=== PATIENT | male | born 1985 | race Caucasian/White ===

== ENCOUNTER 2020-01-03 05:19 | Observation (INO) ==
[2020-01-03 05:57] LABS: Basophils # 0.1 K/mcL (0.0-0.2); Basophils % 1.1 %; Eosinophils # 0.4 K/mcL (0.0-0.6); Hematocrit 43.7 % (37.5-50.1); Immature Granulocytes % 0.3 % (0-4); Lymphocytes # 2.7 K/mcL (0.6-4.6); Lymphocytes % 37.2 %; Mean Corpuscular HGB Conc 34.3 g/dL (31.6-35.5); Mean Corpuscular Hemoglobin 30.2 pg (28.0-33.3); Mean Corpuscular Volume 87.9 fL (83.0-100.0); Mean Platelet Volume 10.6 fL (9.4-12.4); Monocytes # 0.5 K/mcL (0.0-1.3); Monocytes % 6.5 %; Neutrophils # 3.6 K/mcL (1.6-8.9); Platelet Count 247 K/mcL (140-400); Red Blood Count 4.97 M/mcL (4.19-5.50); Red Cell Distribution Width 12.5 % (11.5-14.5); Segmented Neutrophils % 49.9 %; White Blood Count 7.2 K/mcL (4.3-11.1)
[2020-01-03 06:16] LABS: BUN/Creatinine Ratio 17 (6-26); Blood Urea Nitrogen 18 mg/dL (6-20); Calcium 9.5 mg/dL (8.6-10.3); Carbon Dioxide 26 mEq/L (23-29); Chloride 102 mEq/L (98-107); Glucose 119 mg/dL (70-105); Osmolality,Calculated 287 (280-300); Potassium 3.8 mEq/L (3.5-5.1); Sodium 137 mEq/L (136-145); Troponin I < 0.03 ng/mL (< 0.04); eGFR For African Americans > 60 (> 60); eGFR For Non-African Americans > 60 (> 60)
[2020-01-03] MEDS: Nitroglycerin 0.4 MG TAB.SUBL SL PRN ×3 (06:21→19:42)
[2020-01-03] MEDS ORDERED: Naloxone 0.4 MG/ML INJ IVP PRN (07:14)
[2020-01-03] MEDS ORDERED: Ondansetron 4 MG/2 ML VIAL IVP PRN (07:14)
[2020-01-03] MEDS ORDERED: Nitroglycerin 0.4 MG TAB.SUBL SL PRN (07:20)
[2020-01-03] MEDS ORDERED: Isovue-370 500 ML BOTTLE IVP ONE (07:42)
[2020-01-03] MEDS ORDERED: VITAMIN D3 PO SCH (09:00)
[2020-01-03] MEDS: Cholecalciferol (D-3) 1,000 UNIT (25MCG) TABLET PO SCH (09:00)
[2020-01-03] MEDS: Aspirin Enteric Coated 81 MG Tablet PO SCH (09:00)
[2020-01-03] MEDS ORDERED: CALCIUM CARB PO SCH (09:00)
[2020-01-03] MEDS ORDERED: [UNRECOGNIZED DRUG - OTHER] PO SCH (09:00)
[2020-01-03 10:22] LABS: Amphetamine Screen,Urine Negative ng/mL (Cutoff=1000); Barbiturate Screen,Urine Negative ng/mL (Cutoff=200); Benzodiazepines Screen,Urine Negative ng/mL (Cutoff=200); Cannabinoid Screen,Urine Negative ng/mL (Cutoff = 50); Cocaine Screen,Urine Negative ng/mL (Cutoff= 300); Opiate Screen,Urine Negative ng/mL (Cutoff=300); Phencyclidine Screen,Urine Negative ng/mL (Cutoff=25)
[2020-01-03] MEDS: *HR* Heparin 5,000 UNIT/ML VIAL SQ SCH (18:56)
[2020-01-04 02:04] LABS: Basophils # 0.1 K/mcL (0.0-0.2); Basophils % 0.9 %; Eosinophils # 0.4 K/mcL (0.0-0.6); Hematocrit 40.5 % (37.5-50.1); Hemoglobin 14.4 g/dL (12.9-16.9); Immature Granulocytes % 0.3 % (0-4); Lymphocytes # 2.7 K/mcL (0.6-4.6); Lymphocytes % 36.6 %; Mean Corpuscular HGB Conc 35.6 g/dL (31.6-35.5); Mean Corpuscular Hemoglobin 31.5 pg (28.0-33.3); Mean Corpuscular Volume 88.6 fL (83.0-100.0); Mean Platelet Volume 10.9 fL (9.4-12.4); Monocytes # 0.6 K/mcL (0.0-1.3); Monocytes % 7.8 %; Neutrophils # 3.7 K/mcL (1.6-8.9); Platelet Count 239 K/mcL (140-400); Red Blood Count 4.57 M/mcL (4.19-5.50); Red Cell Distribution Width 12.6 % (11.5-14.5); Segmented Neutrophils % 49.4 %; White Blood Count 7.4 K/mcL (4.3-11.1)
[2020-01-04 02:23] LABS: BUN/Creatinine Ratio 13 (6-26); Blood Urea Nitrogen 16 mg/dL (6-20); Carbon Dioxide 27 mEq/L (23-29); Chloride 100 mEq/L (98-107); Glucose 93 mg/dL (70-105); Osmolality,Calculated 285 (280-300); Potassium 3.7 mEq/L (3.5-5.1); Sodium 137 mEq/L (136-145); eGFR For African Americans > 60 (> 60); eGFR For Non-African Americans > 60 (> 60)
[2020-01-04] MEDS: *HR* Heparin 5,000 UNIT/ML VIAL SQ SCH (05:45)
[2020-01-04] MEDS ORDERED: Regadenoson 0.4 MG/5 ML SYRINGE IVP ONE (06:40)
[2020-01-04 06:56] VITALS: BP 116/70
[2020-01-04] MEDS: Cholecalciferol (D-3) 1,000 UNIT (25MCG) TABLET PO SCH (08:31)
[2020-01-04] MEDS: Aspirin Enteric Coated 81 MG Tablet PO SCH (08:31)
== END 2020-01-04 16:39 | disposition home or self-care (01) ==
LOC: 3BNU 05:19 → EMEROOARM 05:19 → 3BNU 08:25
PROVIDERS: ADMIT Internal Medicine; ATTEND Internal Medicine